=== PATIENT | female | born 1975 ===

== ENCOUNTER → 2016-03-15 | Outpatient (CLI) | payer OTHER ==
--- NOTE | 2016-03-15 17:43 | US ---
Pelvic Sonogram (With Transvaginal) Clinical Indications: Dysfunctional uterine bleeding. Technique: Transabdominal and endovaginal exams. Transvaginal exam is added to better evaluate the uterus and ovaries. Findings: The uterus measures 4.6 x 6.0 x 10.6 cm with a 7 mm endometrial stripe. There is a 2.3 x 1 .3 x 1.6 cm fibroid in the superior right uterus and a 2.1 x 1.1 x 2.2 cm fibroid in the lateral left uterus. Right ovary measures 0.9 x 1.4 x 2.4 cm with normal resistive index of 0.5. Left ovary measures 1.3 x 1.9 x 2.6 cm with normal resistive index of 0.5. Impression: Uterine fibroids. Critical results relayed to the on-call physician for [facility] on March 15, 2016 at 1732 hours.
== END ==
LOC: FIMAGING 16:20
PROVIDERS: ATTEND Family Medicine
DX: D25.9 Leiomyoma of uterus, unspecified (principal)